=== PATIENT | female | born 1940 ===

== ENCOUNTER 2020-02-05 10:47 | Emergency (ER) | payer OTHER ==
[~2020-02-05] VITALS: Ht 165.1 cm; Wt 73.5 kg
[~2020-02-05 10:47] MED LIST: BENADRYL25 MG PO; CEFADROXIL500 MG PO; PANADOL MAXIMU500 MG PO; PERCOCET 5/321 UDTAB PO; XARELTO10 MG PO
[2020-02-05] MEDS ORDERED: KETO10TA2 PO (13:47)
[2020-02-05] MEDS ORDERED: ORPHENADRINE C100 MG PO (13:47)
== END 2020-02-05 13:56 | disposition home or self-care (01) ==
LOC: ER 10:47
DX: S30.0XXA Contusion of lower back and pelvis, initial encounter (principal); S20.222A Contusion of left back wall of thorax, initial encounter; S20.221A Contusion of right back wall of thorax, initial encounter; W18.39XA Other fall on same level, initial encounter; Y93.89 Activity, other specified; Y92.018 Other place in single-family (private) house as the place of occurrence of the external cause; Y99.8 Other external cause status